=== PATIENT | male | born 1965 | race Caucasian/White ===

== ENCOUNTER 2021-02-07 20:40 | Emergency (ER) | payer SELFPAY ==
[2021-02-07 20:56] VITALS: BP 138/81; PULSE 71; RESP 16; TEMP 37; O2SAT 97; BMI 29.5
--- NOTE | 2021-02-07 21:10 | W.ED.SKABFB ---
HPI - Skin/Abscess/Foreign Bdy General: Chief complaint: Skin/Abscess/Foreign Body Stated complaint: possible concrete posioning to knees Time Seen by Provider: 02/07/21 21:10 History of Present Illness: HPI narrative: 55-year-old male patient comes in today for complaints of skin irritation and rash to bilateral knees. 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 Patient reports some mild reactions before with working with concrete but nothing this severe. Patient has some significant excoriation and redness to the skin. Patient has more concerned due to the redness advancing up the thigh on the right lower leg. Patient denies any fever. Review of Systems General: Reports: 10 or more systems reviewed and unremarkable except in HPI and below Skin/Breast: Reports: other (Skin rash) Physical Exam Const: COMMON NORMALS: no acute distress and patient oriented x3 GENERAL APPEARANCE: cooperative HENMT: COMMON NORMALS: normocephalic HEAD & SCALP: normal to inspection and normocephalic Eye: GENERAL EYE: appearance normal, both eyes and all related structures Neck/C-Spine: COMMON NORMALS: full ROM Chest: COMMONS NORMALS: normal inspection of the chest Resp: COMMON NORMALS: normal respiratory effort EFFORT & INSPECTION: Yes able to speak in complete sentences Cardio: COMMON NORMALS: regular rate and regular rhythm RATE: regular rate RHYTHM: regular rhythm GI: COMMON NORMALS: non-tender Back/Pelvis: COMMON NORMALS: thoracic and lumbar spine normal to inspection Extremity: COMMON NORMALS: normal to inspection Neuro: COMMON NORMALS: patient oriented x3 and moves all extremities Psych: COMMON NORMALS: mental status grossly normal and cooperative Skin: NARRATIVE SKIN EXAM: Redness with excoriation and SKIN IMAGES (MALE): 1. Redness and excoriation, centralized normal skin to the knee pad 2. Redness and and excoriation with centralized normal skin to the knee pad Course Vital Signs: Vital signs: Vital Signs Temperature 98.6 F 02/07/21 20:56 Pulse Rate 71 02/07/21 20:56 Respiratory Rate 16 02/07/21 20:56 Blood Pressure 138/81 02/07/21 20:56 Pulse Oximetry 97 02/07/21 20:56 MDM - Skin/Abscess/Foreign Bdy MDM Narrative: Medical decision making narrative: 55-year-old male patient comes in today with complaints of redness to bilateral lower extremities in a circular pattern around the knee with excoriation and superficial loss of dermal skin. Patient reports being exposed to wet concrete. Patient reports bending down and getting onto a freshly poured concrete pad in order to do some work since then he has had increasing redness and irritation. Differential diagnosis includes but not limited to contact dermatitis, cellulitis, chemical burn. Suspect a contact dermatitis due to chemicals with a secondary cellulitis. We will go ahead and put patient on a oral antibiotic clindamycin 300 mg 3 times a day for 7 days. Patient will also be given some triamcinolone cream and bacitracin ointment to alternate for further treatment. Patient was given 1 g of Rocephin and 10 mg dexamethasone in the emergency department. Patient should follow-up with primary care further treatment or return to the ER for worsening symptoms. Discharge Plan Discharge Patient Disposition: Home Clinical Impression: Contact dermatitis Qualifiers: Contact dermatitis type: irritant Contact dermatitis trigger: other chemical product Qualified Code(s): L24.5 - Irritant contact dermatitis due to other chemical products Cellulitis Qualifiers: Site of cellulitis: extremity Site of cellulitis of extremity: lower extremity Laterality: unspecified laterality Qualified Code(s): L03.119 - Cellulitis of unspecified part of limb Condition: Stable Prescriptions: New clindamycin HCl 300 mg capsule 300 mg PO TID 7 Days Qty: 21 RF: 0 triamcinolone acetonide 0.1 % cream 1 applic topical BID Qty: 80 RF: 1 bacitracin 500 unit/gram ointment 1 applic topical BID Qty: 28.4 RF: 1 Discharge Orders: Discharge ED (Routine); Ordered 02/07/21 Ordered By: Kemal Quezada Referrals: Nicholas Cruz MD [Family Provider] - Discharge Diet: Usual diet Discharge Activity: Increase activity as tolerated Patient Instructions: Cellulitis (ED), Opioid Safety Activity Restrictions/Additional Instructions: Home and rest. Use acetaminophen and ibuprofen for pain. Wash wound gently with mild soap and water. Alternate between triamcinolone cream and bacitracin ointment twice a day until healed. You can stop the triamcinolone cream when the redness resolves. Take antibiotic 300 mg of clindamycin 3 times a day for the next 7 days. Drink plenty of water with medication. Monitor for worsening redness and elevation in temperature greater than 100.4. Return to ER for worsening symptoms. Follow-up with primary care in 3 days for recheck. Coding Level of Care Code ED [employer] for Gopi Bradshaw
[2021-02-07] MEDS: cefTRIAXone 1,000 MG in lidocaine 1% 2.1 ML 1 MG IM (22:00)
[2021-02-07] MEDS: dexamethasone 10 mg/mL INJ IM (22:00)
[2021-02-07 23:02] VITALS: RESP 18
== END 2021-02-07 22:45 | disposition home or self-care (01) ==
PROVIDERS: Emergency Provider Nurse Practitioner Family
DX: L24.5 Irritant contact dermatitis due to other chemical products (principal); L03.119 Cellulitis of unspecified part of limb
CPT/HCPCS: 96372; 99283; J0696; J1100

== ENCOUNTER 2021-09-08 14:05 | Emergency (ER) | payer SELFPAY ==
[2021-09-08] VITALS (40 sets, daily range): BP systolic 107–151; BP diastolic 66–96; PULSE 63–91; RESP 9–21; TEMP 36.6; O2SAT 91–100; BMI 28.8
--- NOTE | 2021-09-08 14:27 | CT_ITS ---
WS: [id number] CT FACIAL BONES TECHNIQUE: Noncontrast facial bones with coronal and sagittal reformatted images. CLINICAL INFORMATION: fall COMPARISON: None. DLP: 627.[address] scans at [facility] use at least one of these dose optimization techniques: automated e xposure control; mA and/or kV adjustment per patient size (includes targeted exams where dose is matc hed to clinical indication); or iterative reconstruction. FINDINGS: Fluid and blood products in the paranasal sinuses with air-fluid levels. Nondisplaced RIGHT frontal c alvarial fracture extending into the superior orbital rim. Comminuted fractures of the RIGHT sphenoid wing. Comminuted fractures involving the inferior RIGHT orbit, and anterior and posterior steven RIGH T maxillary sinus. Soft tissue edema with air in the subcutaneous soft tissues and RIGHT orbit. Small amount of intraorbital fat herniation. No entrapment of the inferior rectus. Subcutaneous emphysema overlying the LEFT orbit with contusion. Suspected tiny nondisplaced fracture LEFT inferior orbit. Tiny fracture involving the posterior wall LEFT maxillary sinus. Blood products in the LEFT maxillary sinus. LEFT zygoma and sphenoid wing appear intact. LEFT lateral orbit appears intact. Normal pterygoid plates. No evidence of mandibular fracture dislocation. Mastoid air cells we ll aerated. Normal posterior nasopharynx. Nondisplaced fractures of the RIGHT middle cranial fossa laterally. RIGHT Greater sphenoid wing and O rbital fractures extend to the orbital apex with narrowing of the optic canal. CT/CT facial bones wo con* [id number] IMPRESSION: 1. Nondisplaced fractures involving the RIGHT frontal calvarium extending into the superior orbital rim. Additional nondisplaced fractures involving the squa mous portion of the RIGHT temporal bone extending to the anterior aspect of the mastoid air cells. No fluid or blood products the mastoid air cells. 2. RIGHT inferior orbital fracture with slight depression. Slight herniation o f intraorbital fat. No entrapment of the inferior rectus. Suspected tiny fractu re of the LEFT inferior orbit. 3. Fracture of the anterior and posterior steven RIGHT maxillary sinus and post erior wall LEFT maxillary sinus. 4. Fluid and blood products in the paranasal sinuses. 5. Fracture of the RIGHT lateral orbit and greater sphenoid wing. 6. Slightly comminuted fractures of the RIGHT posterior orbit adjacent to the superior orbital fissure. This abuts the optic canal with mild narrowing of the optic canal. No significant impingement on the traversing optic nerve. 7. Pterygoid plates are intact.
--- NOTE | 2021-09-08 14:27 | CT_ITS ---
WS: [id number] CT HEAD TECHNIQUE: Noncontrast CT of the head obtained from the skullbase to the vertex. CLINICAL INFORMATION: fall COMPARISON: None. DLP: 1095.[address] scans at [facility] use at least one of these dose optimization techniques: automated e xposure control; mA and/or kV adjustment per patient size (includes targeted exams where dose is matc hed to clinical indication); or iterative reconstruction. FINDINGS: No evidence of intracranial hemorrhage or mass effect. Ventricular system and basal cisterns are chowdhury nt. No extra-axial fluid collections. No evidence of mass or mass effect. Normal mckay-white different iation. Fluid and blood products in the paranasal sinuses. Soft tissue edema overlying the LEFT greater than RIGHT facial and orbital soft tissues. Mastoid air cells are well aerated. Nondisplaced RIGHT frontal calvarial fracture extending through the superior orbit. RIGHT zygoma fracture partially visualized. Facial fractures will be discussed on the facial CT. CT/CT head wo con* [id number] IMPRESSION: 1. No evidence of intracranial hemorrhage or mass effect. 2. Fluid and blood products in the paranasal sinuses. 3. Nondisplaced RIGHT frontal calvarial fracture extending through the superio r orbit. RIGHT zygoma fracture partially visualized. Partially visualized facia l fractures will be discussed on the face CT. 4. Soft tissue edema overlying the facial soft tissues.
--- NOTE | 2021-09-08 14:27 | CT_ITS ---
WS: [id number] CT CERVICAL TRAUMA TECHNIQUE: Noncontrast CT of the cervical spine with coronal and sagittal reformatted images. CLINICAL INFORMATION: fall COMPARISON: None. DLP: 331.[address] scans at [facility] use at least one of these dose optimization techniques: automated e xposure control; mA and/or kV adjustment per patient size (includes targeted exams where dose is matc hed to clinical indication); or iterative reconstruction. FINDINGS: Straightening of the normal cervical lordosis. Mild spondylitic changes. Disc space narrowing worse a t C5-C6 and C6-C7. Anterior hypertrophic changes. Normal craniocervical junction. Normal C1-C2 articu lation. Dens is normal in appearance. Normal occipital condyles. No high-grade spinal canal narrowing . Normal C1 ring. No evidence of acute fracture or dislocation. A few small thyroid nodules. Normal prevertebral soft tissues. Mastoids air cells are well aerated. CT/CT cervical spin wo con* [id number] IMPRESSION: No evidence of acute fracture or dislocation.
--- NOTE | 2021-09-08 14:27 | CT_ITS ---
WS: [id number] CT CHEST, ABDOMEN, AND PELVIS TECHNIQUE: Contrast-enhanced CT of the chest, abdomen, and pelvis with coronal and sagittal reformatt ed images. CLINICAL INFORMATION: fall COMPARISON: None. DLP: 1839.[address] scans at [facility] use at least one of these dose optimization techniques: automated e xposure control; mA and/or kV adjustment per patient size (includes targeted exams where dose is matc hed to clinical indication); or iterative reconstruction. CT CHEST: Both lungs are well aerated. No pneumothorax. No focal pneumonia or pleural fluid. Normal caliber tho racic aorta. Proximal main pulmonary arteries are normal. No mediastinal or hilar lymphadenopathy. No axillary lymphadenopathy. Normal thoracic spine. No acute appearing thoracic compression fractures. CT ABDOMEN AND PELVIS: Mild diffuse fatty infiltration of the liver. Normal gallbladder. Normal portal vein and splenic vein . Fluid distended stomach. Evidence of prior splenic trauma with splenules. Normal pancreatic parench ymal enhancement. Normal caliber abdominal aorta. No free fluid in the abdomen or pelvis. Adrenal gla nds are normal. Horseshoe configuration to the kidney. No hydronephrosis. Ovoid soft tissue nodule in the anterior LE FT abdomen measuring 1.7 cm with similar enhancement as the spleen. This may represent a displaced sp lenule but nonspecific. Recommend 3 month follow-up to ensure stability. Normal sigmoid colon. Tiny fat-containing umbilical hernia. Normal lumbar spine. CT/CT chest abd pel w con* IMPRESSION: 1. No acute traumatic findings in the chest abdomen or pelvis. 2. Congenital horseshoe kidney. Normal renal parenchymal enhancement. No hydro nephrosis. 3. Evidence of prior splenic trauma with splenic deformity and splenules. 4. Ovoid soft tissue nodule in the LEFT anterior abdomen may represent an jalyn tional small splenule but indeterminant measuring 1.7 CM. Recommend contrast-en hanced CT abdomen pelvis in 3 months to ensure stability and to exclude develop ing mesenteric mass or lymphadenopathy. 5. A few slight prominent periaortic lymph nodes largest measuring 9 mm nonspe cific but may be reactive.
--- NOTE | 2021-09-08 14:28 | ED_ITS ---
Documented by User: Herbie Thornton MD 09/08/21 17:51 HPI - Fall General: Chief Complaint: Fall Stated Complaint: Fell, gash on head Time Seen by Provider: 09/08/21 14:20 History of Present Illness: 56-year-old presents with headache neck pain and periorbital pain after mechanical fall. He had a ladder up on scaffolding and fell approximately 15 feet. Denies loss of consciousness. He is not normally on blood thinners but gave him 3 full-strength aspirin prior to arrival. He denies any chest pain abdominal pain back pain. Reports very minor pain in the left wrist but states this is small and he does not want an x-ray. Denies any focal numbness weakness or tingling. Denies any other extremity pain. Review of Systems Narrative: - CONSTITUTIONAL: Denies weight loss, fever and chills. - HEENT: Denies changes in vision and hearing. - RESPIRATORY: Denies SOB and cough. - CV: Denies palpitations and CP. - GI: Denies abdominal pain, nausea, vomiting and diarrhea. - : Denies dysuria and urinary frequency. - MSK: Denies myalgia and joint pain. - SKIN: Denies rash and pruritus. - NEUROLOGICAL: As above - PSYCHIATRIC: Denies suicidal ideation Physical Exam Narrative: EXAM NARRATIVE: - GENERAL: Alert and oriented x 3. No acute distress. Well-nourished. - EYES: EOMI. Anicteric. - HENT: C-collar in place, there is bilateral periorbital ecchymoses. Swelling of the eyelids worse on the left than right. He is able to open the eyes. Denies any pain in the eye itself. Extraocular movements intact. Vision grossly intact. No hemotympanum. No nasal septal hematoma. There is a 3 cm laceration across the right brow. Does not extend into the eyelid itself. - LUNGS: Clear to auscultation bilaterally. No accessory muscle use. Equal lung sounds bilaterally. No respiratory distress. - CARDIOVASCULAR: Regular rate and rhythm. No murmur. No JVD. - ABDOMEN: Soft, non-tender and non-distended. Negative CVA tenderness bilaterally, no rebound or guarding, negative Zimmer sign. No palpable masses. - EXTREMITIES: No edema. Non-tender. - SKIN: No rashes or lesions. Warm. - NEUROLOGIC: No meningismus or focal neurological deficits. CN II-XII grossly intact. - PSYCHIATRIC: Cooperative. Appropriate mood and affect. Course Vital Signs: Vital signs: Vital Signs Temperature 97.9 F 09/08/21 14:10 Pulse Rate 75 09/08/21 18:20 Respiratory Rate 15 09/08/21 18:20 Blood Pressure 127/75 09/08/21 18:20 Pulse Oximetry 94 09/08/21 18:20 MDM - Fall Medical Decision Making I was consulted by Dr. Thornton to repair patient's right superior orbital lac eration. Wound was repaired as documented. Other than laceration repair I did not actively participate in any form of patient's care. ES Patient presents with above-mentioned injuries after mechanical fall. CT of the head does not reveal any intracranial hemorrhage. CT of the C-spine does not show any fracture dislocation CT of the chest abdomen pelvis not reveal any acute abnormality. However CT of the facial bones reveals several fractures. There is fracture is abutting the optic canal with mild narrowing. He denies any vision change however per ENT at this facility he request transfer to a bigger center with availability of neurosurgery ophthalmology and ENT. Currently seeking placement.Patient signed out to Dr. Rogers. Lab Data : 09/08/21 14:46 09/08/21 14:46 Radiology Impressions Cervical Spine CT 09/08/21 14:27 IMPRESSION: No evidence of acute fracture or dislocation. Chest/Abdomen/Pelvis CT 09/08/21 14:27 IMPRESSION: 1. No acute traumatic findings in the chest abdomen or pelvis. 2. Congenital horseshoe kidney. Normal renal parenchymal enhancement. No hydronephrosis. 3. Evidence of prior splenic trauma with splenic deformity and splenules. 4. Ovoid soft tissue nodule in the LEFT anterior abdomen may represent an additional small splenule but indeterminant measuring 1.7 CM. Recommend contrast-enhanced CT abdomen pelvis in 3 months to ensure stability and to exclude developing mesenteric mass or lymphadenopathy. 5. A few slight prominent periaortic lymph nodes largest measuring 9 mm nonspecific but may be reactive. Face CT 09/08/21 14:27 IMPRESSION: 1. Nondisplaced fractures involving the RIGHT frontal calvarium extending into the superior orbital rim. Additional nondisplaced fractures involving the squamous portion of the RIGHT temporal bone extending to the anterior aspect of the mastoid air cells. No fluid or blood products the mastoid air cells. 2. RIGHT inferior orbital fracture with slight depression. Slight herniation of intraorbital fat. No entrapment of the inferior rectus. Suspected tiny fracture of the LEFT inferior orbit. 3. Fracture of the anterior and posterior steven RIGHT maxillary sinus and posterior wall LEFT maxillary sinus. 4. Fluid and blood products in the paranasal sinuses. 5. Fracture of the RIGHT lateral orbit and greater sphenoid wing. 6. Slightly comminuted fractures of the RIGHT posterior orbit adjacent to the superior orbital fissure. This abuts the optic canal with mild narrowing of the optic canal. No significant impingement on the traversing optic nerve. 7. Pterygoid plates are intact. Head CT 09/08/21 14:27 IMPRESSION: 1. No evidence of intracranial hemorrhage or mass effect. 2. Fluid and blood products in the paranasal sinuses. 3. Nondisplaced RIGHT frontal calvarial fracture extending through the superior orbit. RIGHT zygoma fracture partially visualized. Partially visualized facial fractures will be discussed on the face CT. 4. Soft tissue edema overlying the facial soft tissues. Laboratory Results WBC 7.9 10^3/uL (4.0-10.0) 09/08/21 14:46 RBC 5.12 10^6/uL (4.1-5.3) 09/08/21 14:46 Hgb 15.7 g/dL (11.7-16.6) 09/08/21 14:46 Hct 46.1 % (42.0-52.0) 09/08/21 14:46 MCV 90.0 fl (80-94) 09/08/21 14:46 MCH 30.7 pg (28.0-34.0) 09/08/21 14:46 MCHC 34.1 g/dL (30.0-36.0) 09/08/21 14:46 RDW 13.3 % (12.1-15.1) 09/08/21 14:46 Plt Count 279 10^3/cmm (130-400) 09/08/21 14:46 MPV 11.4 fL (7.4-10.4) H 09/08/21 14:46 Neut % (Auto) 45.3 % 09/08/21 14:46 Lymph % (Auto) 40.4 % 09/08/21 14:46 [place] % (Auto) 9.6 % 09/08/21 14:46 Eos % (Auto) 3.3 % 09/08/21 14:46 Baso % (Auto) 1.0 % 09/08/21 14:46 Neut # (Auto) 3.60 10^3/uL (1.8-7.7) 09/08/21 14:46 Lymph # (Auto) 3.2 10^3/uL (0.8-4.8) 09/08/21 14:46 [place] # (Auto) 0.8 10^3/uL (0.2-0.9) 09/08/21 14:46 Eos # (Auto) 0.3 10^3/uL (0.0-0.8) 09/08/21 14:46 Baso # (Auto) 0.1 10^3/uL (0.0-0.1) 09/08/21 14:46 Nucleated RBC % (auto) 0 % 09/08/21 14:46 Nucleated RBCs # 0.0 /100WBC 09/08/21 14:46 PT 12.90 SECONDS (12.1-14.9) 09/08/21 14:46 INR 0.94 (0.8-1.2) 09/08/21 14:46 APTT 24.7 SECONDS (23.9-36.7) 09/08/21 14:46 Sodium 136 mmol/L (136-145) 09/08/21 14:46 Potassium 4.1 mmol/L (3.5-5.1) 09/08/21 14:46 Chloride 99 mmol/L (98-107) 09/08/21 14:46 Carbon Dioxide 25 mmol/L (22-29) 09/08/21 14:46 Anion Gap 16.1 (5-19) 09/08/21 14:46 BUN 14 mg/dL (6-20) 09/08/21 14:46 Creatinine 1.0 mg/dL (0.7-1.2) 09/08/21 14:46 GFR Calculation 77.0 mL/min (90-130) L 09/08/21 14:46 Glucose 112 mg/dL (65-115) 09/08/21 14:46 Calculated Osmolality 283 mOsm/kg (285-295) L 09/08/21 14:46 Calcium 9.3 mg/dL (8.5-10.5) 09/08/21 14:46 Total Bilirubin 0.4 mg/dL (0.15-1.2) 09/08/21 14:46 AST 32 U/L (0-40) 09/08/21 14:46 ALT 41 U/L (0-41) 09/08/21 14:46 Alkaline Phosphatase 82 IU/L (40-130) 09/08/21 14:46 Total Protein 7.4 g/dL (6.6-8.7) 09/08/21 14:46 Albumin 4.5 g/dL (3.5-5.2) 09/08/21 14:46 Globulin 2.9 g/dL (1.3-4.6) 09/08/21 14:46 Urine Color Straw (Yellow) 09/08/21 16:58 Urine Appearance Clear (CLEAR) 09/08/21 16:58 Urine pH 7 (5-7) 09/08/21 16:58 Ur Specific [place] 1.005 (1.005-1.030) 09/08/21 16:58 Urine Protein Neg (Negative) 09/08/21 16:58 Urine Glucose (UA) Norm (Normal) 09/08/21 16:58 Urine Ketones Negative (Negative) 09/08/21 16:58 Urine Blood Neg (Negative) 09/08/21 16:58 Urine Nitrate Negative (Negative) 09/08/21 16:58 Urine Bilirubin Neg (Negative) 09/08/21 16:58 Urine Urobilinogen Norm mg/dL (Negative) 09/08/21 16:58 Ur Leukocyte Esterase Negative (Negative) 09/08/21 16:58 Urine RBC Rare /hpf (0-2) 09/08/21 16:58 Urine WBC Rare /hpf (0-5) 09/08/21 16:58 Ur Squamous Epith Cells Rare /hpf (0-5) 09/08/21 16:58 Amorphous Sediment Not Reportable 09/08/21 16:58 Urine Bacteria None /hpf (NONE) 09/08/21 16:58 Discharge Plan Discharge Condition: Stable Prescriptions: No Action lysine 500 mg Tablet 500 mg PO DAILY 0RF calcium carb-mag ox-zinc gluc 333-133-5 mg Tablet 1 tab PO DAILY 0RF Coding Level of Care Code ED [employer] Dr[employer] Machine Operator for Chg Fwd Documented by User: LOUISE Morataya 09/08/21 16:57 HPI - Fall General: Chief Complaint: Fall Stated Complaint: Fell, gash on head Time Seen by Provider: 09/08/21 14:20 Procedures Laceration Laceration 1: Site: face Side (If applicable): right Size (cm): 3.5 Description: linear Depth: involves muscle layer Local Anesthetic: lidocaine 1% Amount of anesthesia used (mL): 3.0 Pre-repair: wound explored and irrigated extensively Skin layer closed with: nylon Size (cm): 3-0 Number of sutures: 7 Technique: running Subcutaneous layer closed with: vicryl Size: 4-0 Number of sutures: 3 Technique: simple, interrupted Course Vital Signs: Vital signs: Vital Signs Temperature 97.9 F 09/08/21 14:10 Pulse Rate 75 09/08/21 18:20 Respiratory Rate 15 09/08/21 18:20 Blood Pressure 127/75 09/08/21 18:20 Pulse Oximetry 94 09/08/21 18:20 MDM - Fall Medical Decision Making I was consulted by Dr. Thornton to repair patient's right superior orbital laceration. Wound was repaired as documented. Other than laceration repair I did not actively participate in any form of patient's care. ES Lab Data : 09/08/21 14:46 09/08/21 14:46 Radiology Impressions Cervical Spine CT 09/08/21 14:27 IMPRESSION: No evidence of acute fracture or dislocation. Chest/Abdomen/Pelvis CT 09/08/21 14:27 IMPRESSION: 1. No acute traumatic findings in the chest abdomen or pelvis. 2. Congenital horseshoe kidney. Normal renal parenchymal enhancement. No hydronephrosis. 3. Evidence of prior splenic trauma with splenic deformity and splenules. 4. Ovoid soft tissue nodule in the LEFT anterior abdomen may represent an additional small splenule but indeterminant measuring 1.7 CM. Recommend contrast-enhanced CT abdomen pelvis in 3 months to ensure stability and to exclude developing mesenteric mass or lymphadenopathy. 5. A few slight prominent periaortic lymph nodes largest measuring 9 mm nonspecific but may be reactive. Face CT 09/08/21 14:27 IMPRESSION: 1. Nondisplaced fractures involving the RIGHT frontal calvarium extending into the superior orbital rim. Additional nondisplaced fractures involving the squamous portion of the RIGHT temporal bone extending to the anterior aspect of the mastoid air cells. No fluid or blood products the mastoid air cells. 2. RIGHT inferior orbital fracture with slight depression. Slight herniation of intraorbital fat. No entrapment of the inferior rectus. Suspected tiny fracture of the LEFT inferior orbit. 3. Fracture of the anterior and posterior steven RIGHT maxillary sinus and posterior wall LEFT maxillary sinus. 4. Fluid and blood products in the paranasal sinuses. 5. Fracture of the RIGHT lateral orbit and greater sphenoid wing. 6. Slightly comminuted fractures of the RIGHT posterior orbit adjacent to the superior orbital fissure. This abuts the optic canal with mild narrowing of the optic canal. No significant impingement on the traversing optic nerve. 7. Pterygoid plates are intact. Head CT 09/08/21 14:27 IMPRESSION: 1. No evidence of intracranial hemorrhage or mass effect. 2. Fluid and blood products in the paranasal sinuses. 3. Nondisplaced RIGHT frontal calvarial fracture extending through the superior orbit. RIGHT zygoma fracture partially visualized. Partially visualized facial fractures will be discussed on the face CT. 4. Soft tissue edema overlying the facial soft tissues. Laboratory Results WBC 7.9 10^3/uL (4.0-10.0) 09/08/21 14:46 RBC 5.12 10^6/uL (4.1-5.3) 09/08/21 14:46 Hgb 15.7 g/dL (11.7-16.6) 09/08/21 14:46 Hct 46.1 % (42.0-52.0) 09/08/21 14:46 MCV 90.0 fl (80-94) 09/08/21 14:46 MCH 30.7 pg (28.0-34.0) 09/08/21 14:46 MCHC 34.1 g/dL (30.0-36.0) 09/08/21 14:46 RDW 13.3 % (12.1-15.1) 09/08/21 14:46 Plt Count 279 10^3/cmm (130-400) 09/08/21 14:46 MPV 11.4 fL (7.4-10.4) H 09/08/21 14:46 Neut % (Auto) 45.3 % 09/08/21 14:46 Lymph % (Auto) 40.4 % 09/08/21 14:46 [place] % (Auto) 9.6 % 09/08/21 14:46 Eos % (Auto) 3.3 % 09/08/21 14:46 Baso % (Auto) 1.0 % 09/08/21 14:46 Neut # (Auto) 3.60 10^3/uL (1.8-7.7) 09/08/21 14:46 Lymph # (Auto) 3.2 10^3/uL (0.8-4.8) 09/08/21 14:46 [place] # (Auto) 0.8 10^3/uL (0.2-0.9) 09/08/21 14:46 Eos # (Auto) 0.3 10^3/uL (0.0-0.8) 09/08/21 14:46 Baso # (Auto) 0.1 10^3/uL (0.0-0.1) 09/08/21 14:46 Nucleated RBC % (auto) 0 % 09/08/21 14:46 Nucleated RBCs # 0.0 /100WBC 09/08/21 14:46 PT 12.90 SECONDS (12.1-14.9) 09/08/21 14:46 INR 0.94 (0.8-1.2) 09/08/21 14:46 APTT 24.7 SECONDS (23.9-36.7) 09/08/21 14:46 Sodium 136 mmol/L (136-145) 09/08/21 14:46 Potassium 4.1 mmol/L (3.5-5.1) 09/08/21 14:46 Chloride 99 mmol/L (98-107) 09/08/21 14:46 Carbon Dioxide 25 mmol/L (22-29) 09/08/21 14:46 Anion Gap 16.1 (5-19) 09/08/21 14:46 BUN 14 mg/dL (6-20) 09/08/21 14:46 Creatinine 1.0 mg/dL (0.7-1.2) 09/08/21 14:46 GFR Calculation 77.0 mL/min (90-130) L 09/08/21 14:46 Glucose 112 mg/dL (65-115) 09/08/21 14:46 Calculated Osmolality 283 mOsm/kg (285-295) L 09/08/21 14:46 Calcium 9.3 mg/dL (8.5-10.5) 09/08/21 14:46 Total Bilirubin 0.4 mg/dL (0.15-1.2) 09/08/21 14:46 AST 32 U/L (0-40) 09/08/21 14:46 ALT 41 U/L (0-41) 09/08/21 14:46 Alkaline Phosphatase 82 IU/L (40-130) 09/08/21 14:46 Total Protein 7.4 g/dL (6.6-8.7) 09/08/21 14:46 Albumin 4.5 g/dL (3.5-5.2) 09/08/21 14:46 Globulin 2.9 g/dL (1.3-4.6) 09/08/21 14:46 Urine Color Straw (Yellow) 09/08/21 16:58 Urine Appearance Clear (CLEAR) 09/08/21 16:58 Urine pH 7 (5-7) 09/08/21 16:58 Ur Specific [place] 1.005 (1.005-1.030) 09/08/21 16:58 Urine Protein Neg (Negative) 09/08/21 16:58 Urine Glucose (UA) Norm (Normal) 09/08/21 16:58 Urine Ketones Negative (Negative) 09/08/21 16:58 Urine Blood Neg (Negative) 09/08/21 16:58 Urine Nitrate Negative (Negative) 09/08/21 16:58 Urine Bilirubin Neg (Negative) 09/08/21 16:58 Urine Urobilinogen Norm mg/dL (Negative) 09/08/21 16:58 Ur Leukocyte Esterase Negative (Negative) 09/08/21 16:58 Urine RBC Rare /hpf (0-2) 09/08/21 16:58 Urine WBC Rare /hpf (0-5) 09/08/21 16:58 Ur Squamous Epith Cells Rare /hpf (0-5) 09/08/21 16:58 Amorphous Sediment Not Reportable 09/08/21 16:58 Urine Bacteria None /hpf (NONE) 09/08/21 16:58 Discharge Plan Discharge Condition: Stable Prescriptions: No Action lysine 500 mg Tablet 500 mg PO DAILY 0RF calcium carb-mag ox-zinc gluc 333-133-5 mg Tablet 1 tab PO DAILY 0RF Coding Level of Care Code ED [employer] Machine Operator for Chg Fwd Documented by User: Maria Rogers MD 09/08/21 18:34 HPI - Fall General: Chief Complaint: Fall Stated Complaint: Fell, gash on head Time Seen by Provider: 09/08/21 14:20 Course Vital Signs: Vital signs: Vital Signs Temperature 97.9 F 09/08/21 14:10 Pulse Rate 75 09/08/21 18:20 Respiratory Rate 15 09/08/21 18:20 Blood Pressure 127/75 09/08/21 18:20 Pulse Oximetry 94 09/08/21 18:20 MDM - Fall Medical Decision Making I was consulted by Dr. Thornton to repair patient's right superior orbital laceration. Wound was repaired as documented. Other than laceration repair I did not actively participate in any form of patient's care. ES Patient presents with above-mentioned injuries after mechanical fall. CT of the head does not reveal any intracranial hemorrhage. CT of the C-spine does not show any fracture dislocation CT of the chest abdomen pelvis not reveal any acute abnormality. However CT of the facial bones reveals several fractures. There is fracture is abutting the optic canal with mild narrowing. He denies any vision change however per ENT at this facility he request transfer to a bigger center with availability of neurosurgery ophthalmology and ENT. Currently seeking placement.Patient signed out to Dr. Rogers. Patient presents here after a fall having multiple facial fractures I did speak to [facility] and will transfer there for higher level of care as patient needs trauma and ENT. Lab Data : 09/08/21 14:46 09/08/21 14:46 Radiology Impressions Cervical Spine CT 09/08/21 14:27 IMPRESSION: No evidence of acute fracture or dislocation. Chest/Abdomen/Pelvis CT 09/08/21 14:27 IMPRESSION: 1. No acute traumatic findings in the chest abdomen or pelvis. 2. Congenital horseshoe kidney. Normal renal parenchymal enhancement. No hydronephrosis. 3. Evidence of prior splenic trauma with splenic deformity and splenules. 4. Ovoid soft tissue nodule in the LEFT anterior abdomen may represent an additional small splenule but indeterminant measuring 1.7 CM. Recommend contrast-enhanced CT abdomen pelvis in 3 months to ensure stability and to exclude developing mesenteric mass or lymphadenopathy. 5. A few slight prominent periaortic lymph nodes largest measuring 9 mm nonspecific but may be reactive. Face CT 09/08/21 14:27 IMPRESSION: 1. Nondisplaced fractures involving the RIGHT frontal calvarium extending into the superior orbital rim. Additional nondisplaced fractures involving the squamous portion of the RIGHT temporal bone extending to the anterior aspect of the mastoid air cells. No fluid or blood products the mastoid air cells. 2. RIGHT inferior orbital fracture with slight depression. Slight herniation of intraorbital fat. No entrapment of the inferior rectus. Suspected tiny fracture of the LEFT inferior orbit. 3. Fracture of the anterior and posterior steven RIGHT maxillary sinus and posterior wall LEFT maxillary sinus. 4. Fluid and blood products in the paranasal sinuses. 5. Fracture of the RIGHT lateral orbit and greater sphenoid wing. 6. Slightly comminuted fractures of the RIGHT posterior orbit adjacent to the superior orbital fissure. This abuts the optic canal with mild narrowing of the optic canal. No significant impingement on the traversing optic nerve. 7. Pterygoid plates are intact. Head CT 09/08/21 14:27 IMPRESSION: 1. No evidence of intracranial hemorrhage or mass effect. 2. Fluid and blood products in the paranasal sinuses. 3. Nondisplaced RIGHT frontal calvarial fracture extending through the superior orbit. RIGHT zygoma fracture partially visualized. Partially visualized facial fractures will be discussed on the face CT. 4. Soft tissue edema overlying the facial soft tissues. Laboratory Results WBC 7.9 10^3/uL (4.0-10.0) 09/08/21 14:46 RBC 5.12 10^6/uL (4.1-5.3) 09/08/21 14:46 Hgb 15.7 g/dL (11.7-16.6) 09/08/21 14:46 Hct 46.1 % (42.0-52.0) 09/08/21 14:46 MCV 90.0 fl (80-94) 09/08/21 14:46 MCH 30.7 pg (28.0-34.0) 09/08/21 14:46 MCHC 34.1 g/dL (30.0-36.0) 09/08/21 14:46 RDW 13.3 % (12.1-15.1) 09/08/21 14:46 Plt Count 279 10^3/cmm (130-400) 09/08/21 14:46 MPV 11.4 fL (7.4-10.4) H 09/08/21 14:46 Neut % (Auto) 45.3 % 09/08/21 14:46 Lymph % (Auto) 40.4 % 09/08/21 14:46 [place] % (Auto) 9.6 % 09/08/21 14:46 Eos % (Auto) 3.3 % 09/08/21 14:46 Baso % (Auto) 1.0 % 09/08/21 14:46 Neut # (Auto) 3.60 10^3/uL (1.8-7.7) 09/08/21 14:46 Lymph # (Auto) 3.2 10^3/uL (0.8-4.8) 09/08/21 14:46 [place] # (Auto) 0.8 10^3/uL (0.2-0.9) 09/08/21 14:46 Eos # (Auto) 0.3 10^3/uL (0.0-0.8) 09/08/21 14:46 Baso # (Auto) 0.1 10^3/uL (0.0-0.1) 09/08/21 14:46 Nucleated RBC % (auto) 0 % 09/08/21 14:46 Nucleated RBCs # 0.0 /100WBC 09/08/21 14:46 PT 12.90 SECONDS (12.1-14.9) 09/08/21 14:46 INR 0.94 (0.8-1.2) 09/08/21 14:46 APTT 24.7 SECONDS (23.9-36.7) 09/08/21 14:46 Sodium 136 mmol/L (136-145) 09/08/21 14:46 Potassium 4.1 mmol/L (3.5-5.1) 09/08/21 14:46 Chloride 99 mmol/L (98-107) 09/08/21 14:46 Carbon Dioxide 25 mmol/L (22-29) 09/08/21 14:46 Anion Gap 16.1 (5-19) 09/08/21 14:46 BUN 14 mg/dL (6-20) 09/08/21 14:46 Creatinine 1.0 mg/dL (0.7-1.2) 09/08/21 14:46 GFR Calculation 77.0 mL/min (90-130) L 09/08/21 14:46 Glucose 112 mg/dL (65-115) 09/08/21 14:46 Calculated Osmolality 283 mOsm/kg (285-295) L 09/08/21 14:46 Calcium 9.3 mg/dL (8.5-10.5) 09/08/21 14:46 Total Bilirubin 0.4 mg/dL (0.15-1.2) 09/08/21 14:46 AST 32 U/L (0-40) 09/08/21 14:46 ALT 41 U/L (0-41) 09/08/21 14:46 Alkaline Phosphatase 82 IU/L (40-130) 09/08/21 14:46 Total Protein 7.4 g/dL (6.6-8.7) 09/08/21 14:46 Albumin 4.5 g/dL (3.5-5.2) 09/08/21 14:46 Globulin 2.9 g/dL (1.3-4.6) 09/08/21 14:46 Urine Color Straw (Yellow) 09/08/21 16:58 Urine Appearance Clear (CLEAR) 09/08/21 16:58 Urine pH 7 (5-7) 09/08/21 16:58 Ur Specific [place] 1.005 (1.005-1.030) 09/08/21 16:58 Urine Protein Neg (Negative) 09/08/21 16:58 Urine Glucose (UA) Norm (Normal) 09/08/21 16:58 Urine Ketones Negative (Negative) 09/08/21 16:58 Urine Blood Neg (Negative) 09/08/21 16:58 Urine Nitrate Negative (Negative) 09/08/21 16:58 Urine Bilirubin Neg (Negative) 09/08/21 16:58 Urine Urobilinogen Norm mg/dL (Negative) 09/08/21 16:58 Ur Leukocyte Esterase Negative (Negative) 09/08/21 16:58 Urine RBC Rare /hpf (0-2) 09/08/21 16:58 Urine WBC Rare /hpf (0-5) 09/08/21 16:58 Ur Squamous Epith Cells Rare /hpf (0-5) 09/08/21 16:58 Amorphous Sediment Not Reportable 09/08/21 16:58 Urine Bacteria None /hpf (NONE) 09/08/21 16:58 Discharge Plan Discharge Condition: Stable Prescriptions: No Action lysine 500 mg Tablet 500 mg PO DAILY 0RF calcium carb-mag ox-zinc gluc 333-133-5 mg Tablet 1 tab PO DAILY 0RF Coding Level of Care Code ED [employer] Dr[employer] Machine Operator for Chg Leeann
[2021-09-08] MEDS: ondansetron 2 mg/ML SDV 2 mL 4 MG IVP ×2 (14:40→17:41)
[2021-09-08] MEDS: sodium chloride 0.9% 1,000 ML 999 ML IV (14:40)
[2021-09-08] MEDS: morphine 4 mg/mL SDV 1 mL IVP (14:40)
[2021-09-08] MEDS: tetanus-diphtheria tox (adult) 0.5 mL SDV IM (14:41)
[2021-09-08 14:54] LABS: Basophils # 0.1 10^3/uL (0.0-0.1); Eosinophils # 0.3 10^3/uL (0.0-0.8); Eosinophils % 3.3 %; Hematocrit 46.1 % (42.0-52.0); Hemoglobin 15.7 g/dL (11.7-16.6); Lymphocytes # 3.2 10^3/uL (0.8-4.8); Lymphocytes % 40.4 %; Mean Corpuscular HGB Conc 34.1 g/dL (30.0-36.0); Mean Corpuscular Hemoglobin 30.7 pg (28.0-34.0); Mean Platelet Volume 11.4 fL (7.4-10.4); Monocytes # 0.8 10^3/uL (0.2-0.9); Monocytes % 9.6 %; Neutrophils % 45.3 %; Nucleated Red Blood Cells % 0 %; Platelet Count 279 10^3/cmm (130-400); Red Blood Count 5.12 10^6/uL (4.1-5.3); Red Cell Distribution Width 13.3 % (12.1-15.1); White Blood Count 7.9 10^3/uL (4.0-10.0)
[2021-09-08 15:10] LABS: Alanine Aminotransferase 41 U/L (0-41); Albumin Level 4.5 g/dL (3.5-5.2); Alkaline Phosphatase 82 IU/L (40-130); Anion Gap 16.1 (5-19); Aspartate Amino Transferase 32 U/L (0-40); Blood Urea Nitrogen 14 mg/dL (6-20); Calcium 9.3 mg/dL (8.5-10.5); Carbon Dioxide 25 mmol/L (22-29); Chloride 99 mmol/L (98-107); Creatinine Clr Calc Pharmacy 87.0499; Globulin 2.9 g/dL (1.3-4.6); Glucose 112 mg/dL (65-115); Osmolality Calculated 283 mOsm/kg (285-295); Potassium 4.1 mmol/L (3.5-5.1); Sodium 136 mmol/L (136-145); Total Bilirubin 0.4 mg/dL (0.15-1.2); Total Protein 7.4 g/dL (6.6-8.7)
[2021-09-08] MEDS: iohexol 350 mg/mL 100 mL Btl IV (15:25)
[2021-09-08 15:41] LABS: INR 0.94 (0.8-1.2)
[2021-09-08] MEDS: HYDROmorphone 1 mg/mL INJ 1 mL IVP (15:41)
[2021-09-08 15:42] LABS: Partial Thromboplastin Time 24.7 SECONDS (23.9-36.7)
[2021-09-08 17:40] LABS: Bilirubin Urine Neg (Negative); Blood Urine Neg (Negative); Glucose Urine UA Norm (Normal); Ketones Urine Negative (Negative); Leukocyte Esterase Urine Negative (Negative); Nitrate Urine Negative (Negative); Protein Urine Neg (Negative); Specific Gravity, Urine 1.005 (1.005-1.030); Urine Appearance Clear (CLEAR); Urine Color Straw (Yellow); Urobilinogen Urine Norm (Negative); pH Urine 7 (5-7)
[2021-09-08 17:41] LABS: RBC Urine RARE /hpf (0-2); Squamous Epithelial Cell Urine RARE /hpf (0-5); WBC Urine RARE /hpf (0-5)
[2021-09-08 17:42] LABS: Add Urine Culture? No
[2021-09-08] MEDS: fentaNYL 50 mcg/mL INJ 2mL IVP (17:48)
== END 2021-09-08 19:49 ==
PROVIDERS: Emergency Medicine; Emergency Provider Emergency Medicine
DX: S02.40EA Zygomatic fracture, right side, initial encounter for closed fracture (principal); S02.19XA Other fracture of base of skull, initial encounter for closed fracture; S02.831A Fracture of medial orbital wall, right side, initial encounter for closed fracture; S01.111A Laceration without foreign body of right eyelid and periocular area, initial encounter; W17.89XA Other fall from one level to another, initial encounter; Z23 Encounter for immunization
CPT/HCPCS: 12052; 70450; 70486; 71260; 72125; 74177; 80053; 81001; 85025; 85610; 85730; 90471; 90714; 96361; 96374; 96375; 96376; 99285; J1170; J2270; J2405; J3010; J7030; Q9967